=== PATIENT | male | born 2000 | race Caucasian/White ===

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

== ENCOUNTER 2021-04-29 10:57 | Outpatient (CLI) | payer OTHER | END 2021-04-29 11:04 | disposition home or self-care (01) | LOC: SONOGRAMA 10:57 | PROVIDERS: ATTEND Internal Medicine Hematology & Oncology | DX: N50.811 Right testicular pain (principal); N45.3 Epididymo-orchitis; D40.11 Neoplasm of uncertain behavior of right testis; N50.812 Left testicular pain ==

== ENCOUNTER 2021-04-29 11:23 | Outpatient (CLI) | payer OTHER | END 2021-04-29 11:52 | disposition home or self-care (01) | LOC: LAB 11:23 | PROVIDERS: ATTEND Internal Medicine Hematology & Oncology | DX: N50.812 Left testicular pain (principal); N50.811 Right testicular pain; N45.3 Epididymo-orchitis; D40.11 Neoplasm of uncertain behavior of right testis; I77.6 Arteritis, unspecified; D45 Polycythemia vera; R74.8 Abnormal levels of other serum enzymes; E83.110 Hereditary hemochromatosis ==

== ENCOUNTER 2022-08-01 09:35 | Outpatient (CLI) | payer OTHER | END 2022-08-01 09:36 | disposition home or self-care (01) | LOC: LAB 09:35 | PROVIDERS: ATTEND Internal Medicine Hematology & Oncology | DX: D64.9 Anemia, unspecified (principal); R74.9 Abnormal serum enzyme level, unspecified; E78.00 Pure hypercholesterolemia, unspecified; E03.8 Other specified hypothyroidism; N50.811 Right testicular pain; N45.3 Epididymo-orchitis; D40.11 Neoplasm of uncertain behavior of right testis; N39.0 Urinary tract infection, site not specified ==